=== PATIENT | male | born 2000 | race Caucasian/White ===

== ENCOUNTER 2023-03-30 20:30 | Emergency (ER) | payer SELFPAY ==
[~2023-03-30] VITALS: Ht 180.3 cm; Wt 70.5 kg
[2023-03-30] MEDS ORDERED: NORCO 325 MG-51 TAB PO (22:47)
[2023-03-30 22:54] VITALS: BP 130/82; PULSE 59; TEMP 98.3
--- NOTE | 2023-03-31 12:10 | NUR ---
Patient discharged AMA yesterday, 03/30/23. telephone sex worker reviewed patient's emergency room visit summary. Patient was referred to Dr. Valenzuela. KASSIE contacted Dr. Valenzuela's office to determine if they would be able to see patient for his hemophilia, Dr. Valenzuela would be able to complete blood work there but until provide treatment. KASSIE was informed Dr. Valenzuela would likely refer patient to a swedger for additional care. Patient could be seen there without insurance, he would have a fee but they would be able to work with him. KASSIE contacted Priscila Orta, financial counselor, regarding patient's diagnosis and wanted to know if he would qualify for Medicaid. Priscila expressed she believed he could possibly be eligible and she would contact him to work on a Medicaid application and financial assistance application for any bills at the hospital. SW reviewed information from [employer], the medication patient was taking for his hemophilia. There is a financial assistance program called the [employer] that works with those that have no insurance. KASSIE contacted patient whom expressed he lost his insurance when he turned 22 because he was on his parent's Medicaid. Patient was receiving his Hemlibra through [facility] infusion services but has not been taking it since he lost his insurance. Patient did not remember whom he previously saw for his hemophilia diagnosis. KASSIE provided information to the [facility] for primary care. Patient expressed he would call and set up an appointment. Patient reports he has not utilized [facility] before. Patient works at [employer] in [place]. Patient reports his employer offers [employer] insurance but he did not believe that would help cover his medications as it is a supplemental plan. Patient is looking at working at another agency that provides health insurance. Patient is willing to speak with the hospital financial counselor to apply for Medicaid and financial assistance. SW provided information on the [employer] for assistance with his Hemlibra. Patient is also open to a refer to [facility] like Dr. Valenzuela expressed. Patient expressed when he was taking his Hemlibra, he was able to administer it on his own. KASSIE updated Priscila Orta, financial counselor, and she will reach out to patient. KASSIE contacted [facility] whom expressed they would reach out to patient to schedule the appointment and follow up with the social worker health services in a week to verify patient followed through with primary care needs.
--- NOTE | 2023-04-03 15:50 | NUR ---
animal shelter worker contacted patient's mother, Mami, to check in on patient's medical care to determine if he received his infusion. Mami expressed they were at [facility] at that time for Roderick to get testing done by the hematologists. Mami was worried about the cost of the Hemlibra. KASSIE mentioned again the [employer] financial assistance on the [employer] website. Mami expressed she would. Mami was receiving a call and expressed she would call the social service coordinator back. KASSIE will follow up.
--- NOTE | 2023-04-07 16:22 | NUR ---
cinder crew worker contacted patient's mother, Mami, to confirm patient was able to sign up for the [employer] which is a program through [employer] to assist financially. Mami expressed they forgot but they were going to work on applying for that now. Mami expressed patient was able to get a dose of his medication while he was at [facility] the other week and he would return this week for another dose while his dad is having surgery. SW expressed to work on applying for the fiancial assistance program to see if they can get him covered for vials at home. Mami expressed they would. Mami was receiving a call from the [facility] center, so she had to disconnect from the call. No additional concerns at this time.
== END 2023-03-30 22:54 | disposition left against medical advice (07) ==
LOC: COL.ER 20:30
DX: D66 Hereditary factor VIII deficiency (principal); Z28.310 Unvaccinated for COVID-19

== ENCOUNTER 2023-10-18 04:42 | Emergency (ER) | payer BC ==
[~2023-10-18] VITALS: Ht 154.9 cm; Wt 70.5 kg
[~2023-10-18 04:42] MED LIST: NORCO 325 MG-51 TAB PO
[2023-10-18 04:44] VITALS: TEMP 97.8
[2023-10-18 05:07] LABS: COLLECTION METHOD CLEAN CATCH
[2023-10-18 05:13] LABS: PH 6.5 (5.0-8.5); URINE APPEARANCE CLOUDY (CLEAR/HAZY); URINE BLOOD 3+ (NEGATIVE); URINE COLOR RED (YELLOW); URINE GLUCOSE NEGATIVE (NEGATIVE); URINE KETONE NEGATIVE (NEGATIVE); URINE NITRATE NEGATIVE (NEGATIVE); URINE PROTEIN(semi-quant) TRACE (NEGATIVE)
[2023-10-18] MEDS ORDERED: Cefuroxime 250 MG TAB PO ONE (05:30)
[2023-10-18 05:41] VITALS: BP 118/76; PULSE 62
[2023-10-18] MEDS ORDERED: CEFTIN500 MG PO (05:54)
== END 2023-10-18 06:07 | disposition short-term general hospital (02) ==
LOC: COL.ER 04:42
PROVIDERS: Emergency Medicine
DX: D66 Hereditary factor VIII deficiency (principal)